=== PATIENT | female | born 1955 | race Caucasian/White ===

== ENCOUNTER 2019-01-15 12:23 | Day surgery (SDC) | payer BC, OTHER ==
[2019-01-15] VITALS (12 sets, daily range): BP systolic 115–136; BP diastolic 58–79; PULSE 73–80; RESP 14–21; Ht 160 cm; Wt 62.5 kg
[~2019-01-15] VITALS: Ht 160 cm; Wt 62.5 kg
[~2019-01-15 12:23] MED LIST: CEFAZOLIN 2 GM/50 ML (PMX) 50 ML IVPB SCH; SOD CHLORIDE 0.9% 1,000 ML IV SCH
[2019-01-15] MEDS ORDERED: METF100010 PO (13:20)
[2019-01-15] MEDS ORDERED: SIMV20TA PO (13:22)
--- NOTE | 2019-01-15 14:47 | HPN ---
Date/Time of Note Date/Time of Note DATE: 01/15/19 TIME: 14:47 Interval H&P Admission Note Pt. seen H&P reviewed: No system changes MADYSON SANDRA MD Jan 15, 2019 14:47
[2019-01-15] MEDS ORDERED: BUPIVACAINE 0.5%/EPI (SDV) 30 ML INJ ONE (14:59)
[2019-01-15] MEDS ORDERED: LIDOCAINE 1% (MPF) 30 ML INJ ONE (14:59)
--- NOTE | 2019-01-15 15:13 | PREAC ---
Date/Time of Note Date/Time of Note DATE: 01/15/19 TIME: 15:09 Anesthesia Eval and Record Evaluation Time Pre-Procedure Interview DATE: 01/15/19 TIME: 15:09 Age 63 Sex female NPO: 8 hrs Preoperative diagnosis Lt back mass Planned procedure Excision Lt back mass Past Medical History Past Medical History: Includes Cardio: HTN, Dyslipidemia Endo: Diabetes Surgery & Anesthesia Issues No known issue Meds Anticoagulation: No Beta Carmella within 24 hr: No Reason Beta Carmella not given: Pt. not on B-Carmella Reported Medications Simvastatin* (Zocor*) 20 Mg Tablet, 20 MG PO QHS, #30 TAB 01/15/19 Metformin Hcl* (Metformin Hcl*) 1,000 Mg Tablet, 1000 MG PO WITH BREAKFAST DINNE, #60 TAB 01/15/19 Current Medications Cefazolin Sodium/ Dextrose 50 ml @ 100 mls/hr PREOP IVPB ; Start 01/15/19 at 06:00; Stop 01/15/19 at 17:00 Sodium Chloride 1,000 ml @ 75 mls/hr [id number] IV ; Start 01/15/19 at 06:00; Stop 01/15/19 at 17:00 Meds reviewed: Yes Allergies Coded Allergies: No Known Allergy (Unverified , 01/15/19) Allergies Reviewed: Yes Labs/Studies Labs Reviewed: Reviewed by anesthesiologist test: N/A Studies: ECG Pre-procedure Exam Last vitals Vital Signs Date Temp Pulse Resp B/P (MAP) Pulse Ox O2 O2 Flow FiO2 Time Delivery Rate 01/15/19 98.9 73 16 117/58 98 Room Air 13:30 (77) Airway: Adequate mouth opening, Adequate thyromental dist Mallampati: Mallampati II Teeth: Normal Lung: Normal Heart: Normal ASA Physical Status ASA physical status: 3 Emergency: None Planned Anesthetic General/MAC: LMA Planned Pain Management Parenteral pain med, Local by surgeon Pre-operative Attestations Prior to commencing anesthesia and surgery, the patient was re-evaluated, there was verification of: *The patient's identity *The results of appropriate recent lab work and preoperative vital signs *The above evaluation not changing prior to induction *Anesthetic plan, risk benefits, alternative and complications discussed with patient/family; questions answered; patient/family understands, accepts and wishes to proceed. LUCRECIA BURGER MD Jan 15, 2019 15:13
[2019-01-15] MEDS ORDERED: MIDAZOLAM 1 MG/ML 2 ML INJ ONE (15:17)
[2019-01-15] MEDS ORDERED: FENTAnyl 50 MCG/ML VIAL ONE (15:18)
[2019-01-15] MEDS ORDERED: BACITRACIN/POLYMYXIN 28.35 GM OINT TOP ONE (15:49)
[2019-01-15] MEDS ORDERED: LIDOCAINE 2% (SDV) 5 ML INJ ONE (16:00)
[2019-01-15] MEDS ORDERED: CEFAZOLIN 1 GM INJ ONE (16:00)
[2019-01-15] MEDS ORDERED: ETOMIDATE 20 MG INJ ONE (16:00)
[2019-01-15] MEDS ORDERED: ONDANSETRON 4 MG INJ ONE (16:01)
[2019-01-15] MEDS ORDERED: PROPOFOL 20 ML ONE (16:06)
--- NOTE | 2019-01-15 16:08 | OPR ---
Date/Time of Note Date/Time of Note DATE: 01/15/19 TIME: 16:02 Operative Report Procedure Date: Jan 15, 2019 Preoperative Diagnosis Back mass Postoperative Diagnosis Back mass Operation/Procedure Performed 1. Excision of back mass 2. Creation of local advancement flaps Surgeon see signature line Plate Drying Machine Tender None Anesthesia Type: general Anesthesiologist: LUCRECIA BURGER MD Estimated Blood Loss: minimal Transfusion none Specimen Back mass Grafts/Implants none Complications none Pt Condition Post Procedure: stable Disposition: PACU Indications The patient is a 63-year-old female who presented to the office with a long-st anding history of a soft tissue mass of the left upper back. She had undergone a recent infection of this she was seen in the office. On exam it appeared to be an infected sebaceous cyst. Once completely recovered from the acute infection the patient was scheduled for definitive excision to prevent further recurrent infections. All risks and benefits of the procedure including, but not limited to: Wound infection, excessive bleeding, postoperative seroma/hematoma formation, wound healing problems, mass recurrence, etc. were all explained to the patient and her daughter in full detail. The patient fully understood and wished to proceed with the procedure. Informed consent was obtained. Procedure Description The patient was brought to the operating room and placed supine on the operating table. Bilateral sequential compression devices were placed on both lower extremities. A dose of broad-spectrum perioperative intravenous antibiotics was given. The area of the mass with punctate sinus opening was identified in the left lateral upper back. Was preoperatively marked and confirmed with the patient and her daughter in the holding area. After achieving adequate general anesthesia, the patient was positioned in the right lateral decubitus with the left side up. The back was then prepped and draped in standard surgical fashion. After performance of the surgical timeout 1% lidocaine was injected in a radial fashion around the area of the mass creating a field block. A longitudinal elliptical incision was made along the lines of least tension using a 15 blade scalpel. The incision was carried down through the skin into the subcutaneous tissues using sharp dissection and Bovie electrocautery. Dissection was continued into the deep subcutaneous tissues just above the level of the fascia. The specimen was then transected at its base and passed off the field. Hemostasis was inspected for and noted to be total. The wound cavity was irrigated with warm saline and the irrigant returned clear. At this point 0.5% Marcaine with epinephrine was injected around the area of the incision. Local advancement flaps were then raised circumferentially to aid in a tension- free closure. Incision was then reapproximated in layers using interrupted 3-0 Vicryl sutures for the dermal layer. The skin was reapproximated using interrupted 2-0 nylon sutures in vertical mattress fashion. Incision was cleaned and bacitracin ointment was applied as well as a sterile dressing. Patient was then awoken from anesthesia and transferred to the recovery room in stable condition. All counts were correct at the end of the case x2 MADYSON SANDRA MD Jan 15, 2019 16:08
--- NOTE | 2019-01-15 16:21 | PAC ---
Date/Time of Note Date/Time of Note DATE: 01/15/19 TIME: 16:20 Post-Anesthesia Notes Post-Anesthesia Note Last documented vital signs Vital Signs Date Temp Pulse Resp B/P (MAP) Pulse Ox O2 O2 Flow FiO2 Time Delivery Rate 01/15/19 98.9 73 16 117/58 98 Room Air 13:30 (77) Activity: WNL Respiratory function: WNL Cardiovascular function: WNL Mental status: Baseline Pain reasonably controlled: Yes Hydration appropriate: Yes Nausea/Vomiting absent: Yes Comments BP:132/67, P:75, spo2:100%, T:98,8 LUCRECIA BURGER MD Jan 15, 2019 16:21
[2019-01-15] MEDS ORDERED: DIPHENHYDRAMINE 50 MG INJ IV PRN (16:30)
[2019-01-15] MEDS ORDERED: ONDANSETRON 4 MG INJ IV PRN ×2 (16:30)
[2019-01-15] MEDS ORDERED: IBUPROFEN 600 MG TAB PO PRN (16:30)
[2019-01-15] MEDS ORDERED: hydrALAzine 20 MG INJ IV PRN (16:30)
[2019-01-15] MEDS ORDERED: METOCLOPRAMIDE 10 MG INJ IV PRN (16:30)
[2019-01-15] MEDS ORDERED: FENTAnyl 50 MCG/ML VIAL IV PRN (16:30)
[2019-01-15] MEDS ORDERED: MEPERIDINE 25 MG INJ IV PRN (16:30)
[2019-01-15] MEDS ORDERED: HYDROmorphONE 1 MG/5 ML IV SYRINGE IV PRN ×2 (16:30)
[2019-01-15] MEDS ORDERED: LABETALOL HCL 20MG INJ IV PRN (16:30)
== END 2019-01-15 17:25 | disposition home or self-care (01) ==
LOC: SDS 12:23
PROVIDERS: ATTEND Surgery
DX: L72.0 Epidermal cyst (principal); I10 Essential (primary) hypertension; E78.5 Hyperlipidemia, unspecified; E11.9 Type 2 diabetes mellitus without complications
CPT/HCPCS: 14000; 82962; 88304; J0690; J2250; J2405; J3010; Z7512; Z7610